=== PATIENT | female | born 1940 | race Hispanic/Latino ===

== ENCOUNTER 2018-08-26 10:52 | Observation (INO) | payer MEDICARE ==
[~2018-08-26] VITALS: Ht 144.8 cm; Wt 36.3 kg
[2018-08-26 11:53] LABS: BASOPHILS % (AUTO) 0.8 % (0.0-5.0); EOSINOPHILS % (AUTO) 0.6 % (0.0-8.0); HEMATOCRIT 31.6 % (36-48); LYMPHOCYTES % (AUTO) 15.8 % (21.0-51.0); MEAN CORPUSCULAR HEMOGLOBIN 30.5 pg (27.0-33.0); MEAN CORPUSCULAR HGB CONC 33.4 g/dL (32.0-36.0); MEAN CORPUSCULAR VOLUME 91.5 fL (79-99); MONOCYTES % (AUTO) 10.1 % (3.0-13.0); NEUTROPHILS % (AUTO) 72.7 % (40.0-77.0); PLATELET COUNT (AUTO) 158 K/uL (130-400); RED BLOOD CELL COUNT(AUTO) 3.45 MIL/uL (4.00-5.50); RED CELL DISTRIBUTION WIDTH 13.9 % (11.0-15.5); WHITE BLOOD COUNT (AUTO) 14.6 K/uL (4.8-10.8)
[2018-08-26 12:18] LABS: CREATININE 0.7 mg/dL (0.5-1.5); POTASSIUM 4.2 mmol/L (3.5-5.1)
[2018-08-26 12:24] LABS: ALBUMIN 3.7 g/dL (3.5-5.0); BILIRUBIN,TOTAL 0.7 mg/dL (0.2-1.0); TOTAL PROTEIN, SERUM 7.9 g/dL (6.0-8.3)
[2018-08-26 12:31] LABS: INR 0.94 (0.85-1.15); PARTIAL THROMBOPLASTIN TIME 26.8 SEC (26.3-35.5); PROTHROMBIN TIME 9.9 SEC (9.6-11.6)
[2018-08-26] MEDS ORDERED: ACETAMINOPHEN 325 MG TAB ONE (13:35)
[2018-08-26 16:35] VITALS: BP 118/44
[2018-08-26 16:59] LABS: HEMATOCRIT 31.7 % (36-48)
[2018-08-26] MEDS ORDERED: ACET-2247 PO (17:02)
[2018-08-26] MEDS ORDERED: LEVO75TA4 PO (17:02)
[2018-08-26] MEDS ORDERED: LISI10TA7 PO (17:02)
[2018-08-26 19:00] VITALS: BP 114/48
[2018-08-26] MEDS: PANTOPRAZOLE 40 MG/VIAL IVP SCH (20:38)
[2018-08-26] MEDS ORDERED: ACETAMINOPHEN 325 MG TAB PO PRN (21:15)
[2018-08-27] VITALS: BP 130/57
[2018-08-27 04:00] VITALS: BP 122/57
[2018-08-27 05:15] LABS: MEAN CORPUSCULAR HEMOGLOBIN 29.8 pg (27.0-33.0); MEAN CORPUSCULAR HGB CONC 32.8 g/dL (32.0-36.0); MEAN CORPUSCULAR VOLUME 90.8 fL (79-99); NUCLEATED RED BLOOD CELLS 0.1 % (0.0-0.19); PLATELET COUNT (AUTO) 134 K/uL (130-400); RED BLOOD CELL COUNT(AUTO) 3.41 MIL/uL (4.00-5.50); RED CELL DISTRIBUTION WIDTH 13.9 % (11.0-15.5)
[2018-08-27 07:00] VITALS: BP 105/52
[2018-08-27] MEDS: PANTOPRAZOLE 40 MG/VIAL IVP SCH (10:09)
[2018-08-27 11:00] VITALS: BP 126/72
[2018-08-27 16:00] VITALS: BP 106/60
[2018-08-27] MEDS ORDERED: PEG 3350/NA SULF,BICARB,CL/KCL 4000 ML SOLN PO SCH (16:00)
== END 2018-08-27 17:45 | disposition home or self-care (01) ==
LOC: EDH 10:52 → EDHIP 15:06 → 3AH 16:32
PROVIDERS: ADMIT Internal Medicine; ATTEND Internal Medicine
DX: K92.2 Gastrointestinal hemorrhage, unspecified (principal); D50.0 Iron deficiency anemia secondary to blood loss (chronic); E03.9 Hypothyroidism, unspecified; I10 Essential (primary) hypertension; M81.0 Age-related osteoporosis without current pathological fracture
CPT/HCPCS: 36415 ×2; 74176; 80053; 82270; 85014; 85018; 85025; 85027; 85610; 85730; 86850; 86900; 86901; 96374; 96376; 99284; A4510; C9113 ×3; G0378 ×27

== ENCOUNTER 2018-11-23 15:07 | Emergency (ER) | payer MEDICARE ==
[~2018-11-23 15:07] MED LIST: ACET-2247 PO; LEVO75TA4 PO; LISI10TA7 PO
[2018-11-23 15:54] LABS: BASOPHILS % (AUTO) 0.5 % (0.0-5.0); EOSINOPHILS % (AUTO) 3.2 % (0.0-8.0); HEMATOCRIT 37.8 % (36-48); LYMPHOCYTES % (AUTO) 28.6 % (21.0-51.0); MEAN CORPUSCULAR HEMOGLOBIN 29.6 pg (27.0-33.0); MEAN CORPUSCULAR VOLUME 89.7 fL (79-99); MONOCYTES % (AUTO) 8.5 % (3.0-13.0); NEUTROPHILS % (AUTO) 59.2 % (40.0-77.0); NUCLEATED RED BLOOD CELLS 0.1 % (0.0-0.19); PLATELET COUNT (AUTO) 133 K/uL (130-400); RED BLOOD CELL COUNT(AUTO) 4.21 MIL/uL (4.00-5.50); RED CELL DISTRIBUTION WIDTH 13.6 % (11.0-15.5); WHITE BLOOD COUNT (AUTO) 9.4 K/uL (4.8-10.8)
[2018-11-23 16:03] LABS: CREATININE 0.7 mg/dL (0.5-1.5); POTASSIUM 3.9 mmol/L (3.5-5.1)
[2018-11-23 16:07] LABS: INR 0.94 (0.85-1.15); PROTHROMBIN TIME 9.9 SEC (9.6-11.6)
[2018-11-23 16:12] LABS: ALBUMIN 4.2 g/dL (3.5-5.0); BILIRUBIN,TOTAL 0.2 mg/dL (0.2-1.0); TOTAL PROTEIN, SERUM 8.4 g/dL (6.0-8.3)
[2018-11-23] MEDS ORDERED: TRAMADOL HCL 50 MG TABLET ONE (17:16)
[2018-11-23] MEDS ORDERED: METHYLPREDNISOLONE SOD SUCC 125MG/2ML VIAL ONE (17:59)
== END 2018-11-23 18:19 | disposition home or self-care (01) ==
LOC: EDH 15:07
DX: S46.091A Other injury of muscle(s) and tendon(s) of the rotator cuff of right shoulder, initial encounter (principal); M79.621 Pain in right upper arm; E07.9 Disorder of thyroid, unspecified; I10 Essential (primary) hypertension; Z90.49 Acquired absence of other specified parts of digestive tract; Z79.899 Other long term (current) drug therapy; X58.XXXA Exposure to other specified factors, initial encounter; Y93.89 Activity, other specified; Y92.89 Other specified places as the place of occurrence of the external cause; Y99.8 Other external cause status
CPT/HCPCS: 36415; 71045; 73030; 80053; 82550; 84484; 85025; 85610; 85651; 85730; 86140; 93005; 93971; 96374; 99284; J2930

== ENCOUNTER 2023-09-25 07:56 | Emergency (ER) | payer OTHER, MEDICARE ==
[~2023-09-25] VITALS: Ht 144.8 cm; Wt 40.4 kg
[~2023-09-25 07:56] MED LIST changes: +LISI10TA24 PO; -LISI10TA7 PO
[2023-09-25 08:09] VITALS: BP 120/79; PULSE 93; RESP 18; O2SAT 98
[2023-09-25 09:38] LABS: APPEARANCE,URINE CLOUDY (CLEAR); BILIRUBIN,URINE NEGATIVE (NEGATIVE); COLOR,URINE YELLOW (YELLOW); GLUCOSE, URINE (UA) NEGATIVE (NEGATIVE); KETONES,URINE 5 mg/dL (NEGATIVE); LEUKOCYTE ESTERASE ,URINE 500 Leu/uL (NEGATIVE); NITRATE,URINE NEGATIVE (NEGATIVE); OCCULT BLOOD,URINE SMALL (NEGATIVE); PROTEIN,URINE 10 mg/dL (NEGATIVE); UROBILINOGEN,URINE 0.2 mg/dL (0.2-1.0)
[2023-09-25 09:41] LABS: ADD UA MICROSCOPIC YES
[2023-09-25 09:44] LABS: BACTERIA,URINE FEW /HPF (None Seen); MUCUS,URINE RARE LPF (None Seen); SQUAMOUS EPITHELIAL CELL,UR RARE /HPF (0-2); WBC CLUMP FEW /HPF (0-1); WBC,URINE TNTC /HPF (0-1)
[2023-09-25] MEDS ORDERED: CYCLOBENZAPRINE HCL 10 MG TABLET PO ONE (10:00)
[2023-09-25] MEDS ORDERED: KETOROLAC 15MG/ML VIAL (15MG/ML) IM ONE (10:00)
[2023-09-25 10:26] LABS: BASOPHILS # (AUTO) 0.05 K/uL (0.00-0.20); BASOPHILS % (AUTO) 0.5 % (0.0-5.0); EOSINOPHILS # (AUTO) 0.09 K/uL (0.00-0.70); EOSINOPHILS % (AUTO) 0.8 % (0.0-8.0); HEMATOCRIT 37.6 % (36-48); IMMATURE GRANULOCYTE ABSOLUTE 0.06 K/uL (0-1); LYMPHOCYTES # (AUTO) 2.5 K/uL (1.0-4.8); LYMPHOCYTES % (AUTO) 22.8 % (21.0-51.0); MEAN CORPUSCULAR HEMOGLOBIN 29.9 pg (27.0-33.0); MEAN CORPUSCULAR HGB CONC 32.2 g/dL (32.0-36.0); MEAN CORPUSCULAR VOLUME 92.8 fL (79-99); MONOCYTES # (AUTO) 0.9 K/uL (0.1-1.0); MONOCYTES % (AUTO) 8.3 % (3.0-13.0); NEUTROPHILS # (AUTO) 7.3 K/uL (1.8-7.7); NEUTROPHILS % (AUTO) 67.1 % (40.0-77.0); PLATELET COUNT (AUTO) 179 K/uL (130-400); RED BLOOD CELL COUNT(AUTO) 4.05 MIL/uL (4.00-5.50); RED CELL DISTRIBUTION WIDTH 13.9 % (11.0-15.5); WHITE BLOOD COUNT (AUTO) 10.9 K/uL (4.8-10.8)
[2023-09-25 10:37] LABS: CREATININE 0.7 mg/dL (0.5-1.5)
[2023-09-25 10:42] LABS: ALBUMIN 4.1 g/dL (3.5-5.0); BILIRUBIN,TOTAL 0.6 mg/dL (0.2-1.0); TOTAL PROTEIN, SERUM 8.6 g/dL (6.0-8.3)
[2023-09-25] MEDS ORDERED: CEFTRIAXONE 1G VIAL IVPB ONE (13:00)
[2023-09-25] MEDS ORDERED: IBUP-2076 PO (13:22)
[2023-09-25] MEDS ORDERED: CEPH250C2 PO (13:22)
[2023-09-25] MEDS ORDERED: MORPHINE 2 MG SYG IVP ONE (13:30)
== END 2023-09-25 13:44 | disposition home or self-care (01) ==
LOC: EDH 07:56
DX: N39.0 Urinary tract infection, site not specified (principal); M54.50 Low back pain, unspecified; K57.30 Diverticulosis of large intestine without perforation or abscess without bleeding; E78.00 Pure hypercholesterolemia, unspecified; I10 Essential (primary) hypertension; K21.9 Gastro-esophageal reflux disease without esophagitis; M19.90 Unspecified osteoarthritis, unspecified site; Z79.890 Hormone replacement therapy; Z79.899 Other long term (current) drug therapy; Z90.49 Acquired absence of other specified parts of digestive tract
CPT/HCPCS: 99285; 74176; 96374; 96375; 80053; 85025; 87077; 87088; 87186; 81001; 36415; 96372; J2270; J0696; J1885